=== PATIENT | male | born 1980 | race Two or more races ===

== ENCOUNTER 2018-02-10 08:29 | Inpatient (IN) | payer SELFPAY ==
[~2018-02-10] VITALS: Ht 165.1 cm; Wt 69.4 kg
[2018-02-10 09:22] LABS: BASOPHILS % 0.8 % (0.0-2.0); EOSINOPHILS % 0.9 % (0.0-5.0); HEMATOCRIT. 43.4 % (42.0-52.0); HEMOGLOBIN. 14.9 g/dL (14.0-18.0); LYMPHOCYTES % 20.1 % (20.0-50.0); MEAN CORPUSCULAR VOLUME 90.1 fL (80.0-94.0); MEAN PLATELET VOLUME 8.3 fl (7.4-10.4); MONOCYTES % 13.3 % (2.0-8.0); NEUTROPHILS % 64.9 % (40.0-76.0); PLATELET 237 x1000/uL (130-400); RED BLOOD CELL COUNT 4.81 mill/uL (4.7-6.1); RED CELL DISTRIBUTION WIDTH 13.8 % (11.6-14.6)
[2018-02-10 09:27] LABS: CHLORIDE 94 mEq/L (98-107)
[2018-02-10 09:31] LABS: ETHANOL BLOOD < 10 mg/dL
[2018-02-10 09:54] LABS: CLARITY URINE CLEAR (CLEAR); COLOR URINE YELLOW (YELLOW); KETONES URINE NEGATIVE (NEGATIVE); LEUKOCYTE ESTERASE URINE NEGATIVE (NEGATIVE); NITRITE URINE NEGATIVE (NEGATIVE); OCCULT BLOOD URINE TRACE (NEGATIVE); PH URINE 6.5 (4.5-8.0); PROTEIN URINE NEGATIVE (NEGATIVE); SPECIFIC GRAVITY URINE 1.002 (1.005-1.030); UROBILINOGEN URINE 0.2 E.U./dL (0.2-1.0)
[2018-02-10 10:06] LABS: METHADONE URINE SCREEN NEGATIVE (NEGATIVE); OPIATES URINE SCREEN NEGATIVE (NEGATIVE)
[2018-02-10 10:07] LABS: CANNABINOID URINE SCREEN NEGATIVE (NEGATIVE); PHENCYCLIDINE URINE SCREEN NEGATIVE (NEGATIVE)
[2018-02-10 10:09] LABS: *BARBITURATES SCREEN URINE NEGATIVE (NEGATIVE)
[2018-02-10 10:10] LABS: *AMPHETAMINES SCREEN URINE PRESUMTIVE POSITIVE (NEGATIVE)
[2018-02-10 10:11] LABS: *COCAINE SCREEN URINE NEGATIVE (NEGATIVE)
[2018-02-10 10:14] LABS: *BENZODIAZEPINES SCREEN URINE NEGATIVE (NEGATIVE)
[2018-02-10] MEDS ORDERED: SODIUM CHLORIDE 0.9% 1,000 ML IV ONE (13:44)
[2018-02-10] MEDS ORDERED: LORAZEPAM 2MG/ML CPJ IV PRN (14:15)
[2018-02-10] MEDS ORDERED: DOCUSATE SODIUM 100MG CAPSULE PO PRN (14:15)
[2018-02-10] MEDS ORDERED: ONDANSETRON HCL 4MG/2ML INJ IV PRN (14:15)
[2018-02-10] MEDS ORDERED: NA PHOS,M-B/NA PHOS,DI-BA ENEMA 118ML PR PRN (14:15)
[2018-02-10] MEDS ORDERED: GUAIFENESIN 200MG/10ML SUGAR FREE UDC PO PRN (14:15)
[2018-02-10] MEDS ORDERED: CLONIDINE 0.1MG TABLET PO PRN (14:15)
[2018-02-10] MEDS ORDERED: IPRATROPIUM/ALBUTEROL 0.5-3(2.5)MG/3ML NEB INH PRN (14:15)
[2018-02-10] MEDS ORDERED: HYDROMORPHONE HCL/PF 2MG/ML CPJ IV PRN (14:15)
[2018-02-10] MEDS ORDERED: HYDROCODONE/ACETAMINOPHEN 5/325MG TABLET PO PRN (14:15)
[2018-02-10] MEDS ORDERED: MAGNESIUM/ALUMINUM HYDROXIDE/SIMETHICONE 30ML UDC PO PRN (14:15)
[2018-02-10] MEDS ORDERED: ACETAMINOPHEN 325MG TABLET PO PRN (14:15)
[2018-02-10 17:00] VITALS: BP 129/78
[2018-02-10 17:45] VITALS: BP 129/78
[2018-02-10] MEDS: ENOXAPARIN 40MG/0.4ML SYR SUBCUT SCH (18:00)
[2018-02-10] MEDS: SODIUM CHLORIDE 0.9% 1,000 ML IV SCH (18:19)
[2018-02-10 19:05] LABS: CHLORIDE 107 mEq/L (98-107)
[2018-02-10 20:00] VITALS: BP 135/72
[2018-02-11] VITALS: BP 100/61
[2018-02-11 04:00] VITALS: BP 105/74
[2018-02-11] MEDS: SODIUM CHLORIDE 0.9% 1,000 ML IV SCH ×2 (04:26→13:21)
[2018-02-11 07:02] LABS: BASOPHILS % 0.8 % (0.0-2.0); EOSINOPHILS % 1.1 % (0.0-5.0); HEMOGLOBIN. 13.5 g/dL (14.0-18.0); LYMPHOCYTES % 19.6 % (20.0-50.0); MEAN CORPUSCULAR HEMOGLOBIN 31.3 pg (28.0-32.0); MEAN CORPUSCULAR VOLUME 92.3 fL (80.0-94.0); MEAN PLATELET VOLUME 8.6 fl (7.4-10.4); MONOCYTES % 13.5 % (2.0-8.0); PLATELET 179 x1000/uL (130-400); RED BLOOD CELL COUNT 4.33 mill/uL (4.7-6.1); RED CELL DISTRIBUTION WIDTH 14.3 % (11.6-14.6)
[2018-02-11 07:09] LABS: CHLORIDE 107 mEq/L (98-107)
[2018-02-11 07:26] LABS: LDL CHOLESTEROL 73 mg/dL (5-100)
[2018-02-11 07:29] LABS: HDL CHOLESTEROL 70 mg/dL (40-59); T4 FREE 0.92 ng/dL (0.76-1.46)
[2018-02-11 08:00] VITALS: BP 100/69
[2018-02-11] MEDS: ENOXAPARIN 40MG/0.4ML SYR SUBCUT SCH (09:19)
[2018-02-11] MEDS: ASPIRIN 81MG EC TABLET PO SCH (09:19)
[2018-02-11 11:41] VITALS: BP 100/57
[2018-02-11 16:00] VITALS: BP 103/70
[2018-02-11 20:00] VITALS: BP 98/55
[2018-02-12] VITALS: BP 95/55
[2018-02-12] MEDS: SODIUM CHLORIDE 0.9% 1,000 ML IV SCH ×4 (02:11→23:09)
[2018-02-12 04:00] VITALS: BP 92/63
[2018-02-12 07:04] LABS: HEMATOCRIT 39.3 % (42.0-52.0); HEMOGLOBIN 13.2 g/dL (14.0-18.0); MEAN CORPUSCULAR HEMOGLOBIN 30.9 pg (28.0-32.0); MEAN CORPUSCULAR VOLUME 91.9 fL (80.0-94.0); PLATELET 177 x1000/uL (130-400); RED BLOOD CELL COUNT 4.28 mill/uL (4.7-6.1); RED CELL DISTRIBUTION WIDTH 14.2 % (11.6-14.6)
[2018-02-12 07:51] VITALS: BP 102/56
[2018-02-12 08:07] LABS: CHLORIDE 106 mEq/L (98-107)
[2018-02-12] MEDS: ENOXAPARIN 40MG/0.4ML SYR SUBCUT SCH (09:33)
[2018-02-12] MEDS: ASPIRIN 81MG EC TABLET PO SCH (09:33)
[2018-02-12 12:00] VITALS: BP 100/58
[2018-02-12 16:00] VITALS: BP 108/66
[2018-02-12 20:00] VITALS: BP 104/66
[2018-02-13] VITALS: BP 108/60
[2018-02-13 04:00] VITALS: BP 104/56
[2018-02-13 08:00] VITALS: BP 93/53
[2018-02-13] MEDS: ENOXAPARIN 40MG/0.4ML SYR SUBCUT SCH (09:08)
[2018-02-13] MEDS: ASPIRIN 81MG EC TABLET PO SCH (09:08)
[2018-02-13] MEDS: SODIUM CHLORIDE 0.9% 1,000 ML IV SCH (09:56)
[2018-02-13 12:00] VITALS: BP 120/75
[2018-02-13 12:23] VITALS: BP 120/75
== END 2018-02-13 13:45 | disposition home or self-care (01) | DRG 52 ==
LOC: EDBD 08:29 → ER 08:29 → EDBD 13:55 → 8WST 13:55 → ENRESERV 14:43
PROVIDERS: ADMIT Internal Medicine; ATTEND Internal Medicine
DX: G93.41 Metabolic encephalopathy (principal); E87.1 Hypo-osmolality and hyponatremia; E86.0 Dehydration; E86.9 Volume depletion, unspecified; T38.895A Adverse effect of other hormones and synthetic substitutes, initial encounter; F15.10 Other stimulant abuse, uncomplicated; Z87.820 Personal history of traumatic brain injury; Z79.899 Other long term (current) drug therapy
CPT/HCPCS: 36415; 71045; 80048; 80061; 80305; 82962; 84439; 84443; 84484; 85027; 93005; 96360; 96372; 99285; G0482; J1650; J7030

== ENCOUNTER 2018-02-21 23:56 | Emergency (ER) | payer SELFPAY ==
[~2018-02-21] VITALS: Ht 162.6 cm; Wt 66.0 kg
[2018-02-22 00:16] VITALS: BP 141/94
== END 2018-02-22 03:11 | disposition left against medical advice (07) ==
LOC: ER 23:56
DX: Z53.21 Procedure and treatment not carried out due to patient leaving prior to being seen by health care provider (principal)
CPT/HCPCS: 93005

== ENCOUNTER 2018-08-05 18:11 | Emergency (ER) | payer MEDICAID ==
[~2018-08-05] VITALS: Ht 154.9 cm; Wt 57.0 kg
[2018-08-05 18:25] VITALS: BP 106/78
== END 2018-08-05 18:41 | disposition left against medical advice (07) ==
LOC: ER 18:11
DX: T51.91XA Toxic effect of unspecified alcohol, accidental (unintentional), initial encounter (principal); F10.129 Alcohol abuse with intoxication, unspecified; Y92.89 Other specified places as the place of occurrence of the external cause; R56.9 Unspecified convulsions
CPT/HCPCS: 99283

== ENCOUNTER 2018-08-05 19:44 | Emergency (ER) | payer MEDICAID ==
[~2018-08-05] VITALS: Ht 162.6 cm; Wt 77.1 kg
[2018-08-05 20:10] VITALS: BP 110/79
[2018-08-05 21:27] LABS: *AMPHETAMINES SCREEN URINE NEGATIVE (NEGATIVE); *BARBITURATES SCREEN URINE NEGATIVE (NEGATIVE); *BENZODIAZEPINES SCREEN URINE NEGATIVE (NEGATIVE); *COCAINE SCREEN URINE NEGATIVE (NEGATIVE); METHADONE URINE SCREEN NEGATIVE (NEGATIVE); OPIATES URINE SCREEN NEGATIVE (NEGATIVE)
[2018-08-05 21:28] LABS: CANNABINOID URINE SCREEN NEGATIVE (NEGATIVE); PHENCYCLIDINE URINE SCREEN NEGATIVE (NEGATIVE)
== END 2018-08-05 21:35 | disposition left against medical advice (07) ==
LOC: ER 19:44
DX: F10.129 Alcohol abuse with intoxication, unspecified (principal); R56.9 Unspecified convulsions; Y90.9 Presence of alcohol in blood, level not specified
CPT/HCPCS: 80305; 99283

== ENCOUNTER 2018-08-18 12:15 | Emergency (ER) | payer MEDICAID ==
[~2018-08-18] VITALS: Ht 167.6 cm; Wt 80.0 kg
[2018-08-18 13:04] VITALS: BP 91/65
== END 2018-08-18 14:50 | disposition left against medical advice (07) ==
LOC: ER 12:15
DX: F10.129 Alcohol abuse with intoxication, unspecified (principal); Y90.9 Presence of alcohol in blood, level not specified
CPT/HCPCS: 99283

== ENCOUNTER 2019-03-22 18:57 | Emergency (ER) | payer MEDICAID ==
[~2019-03-22] VITALS: Ht 162.6 cm; Wt 62.0 kg
[2019-03-22 19:01] VITALS: BP 119/78
== END 2019-03-22 19:14 | disposition left against medical advice (07) ==
LOC: ER 18:57
DX: F10.10 Alcohol abuse, uncomplicated (principal); Z53.21 Procedure and treatment not carried out due to patient leaving prior to being seen by health care provider; Y90.9 Presence of alcohol in blood, level not specified

== ENCOUNTER 2019-04-24 14:24 | Emergency (ER) | payer MEDICAID ==
[~2019-04-24] VITALS: Ht 165.1 cm; Wt 64.0 kg
[2019-04-24 14:26] VITALS: BP 128/92
== END 2019-04-24 14:59 | disposition left against medical advice (07) ==
LOC: ER 14:24
DX: F10.129 Alcohol abuse with intoxication, unspecified (principal); Y90.0 Blood alcohol level of less than 20 mg/100 ml; Z53.21 Procedure and treatment not carried out due to patient leaving prior to being seen by health care provider

== ENCOUNTER 2019-04-26 09:44 | Inpatient (IN) | payer MEDICAID, OTHER ==
[~2019-04-26] VITALS: Ht 172.7 cm; Wt 67.1 kg
[2019-04-26] MEDS ORDERED: SODIUM CHLORIDE 0.9% 1000ML BAG (SEPSIS BOLUS) IV ONE (11:00)
[2019-04-26] MEDS ORDERED: FOLIC ACID 1 MG, THIAMINE HCL 100 MG, MVI, ADULT NO.1 10 ML in DEXTROSE 5% WATER 1,000 ML IV ONE ×4 (11:00)
[2019-04-26] MEDS ORDERED: LORAZEPAM 2MG/ML CPJ IV ONE (11:00)
[2019-04-26 11:12] LABS: BASOPHILS % 0.4 % (0.0-2.0); EOSINOPHILS % 0.3 % (0.0-5.0); HEMATOCRIT. 36.7 % (42.0-52.0); HEMOGLOBIN. 12.4 g/dL (14.0-18.0); LYMPHOCYTES % 13.8 % (20.0-50.0); MEAN CORPUSCULAR HEMOGLOBIN 30.3 pg (28.0-32.0); MEAN CORPUSCULAR VOLUME 89.4 fL (80.0-94.0); MEAN PLATELET VOLUME 8.4 fl (7.4-10.4); MONOCYTES % 9.8 % (2.0-8.0); NEUTROPHILS % 75.7 % (40.0-76.0); PLATELET 193 x1000/uL (130-400); RED CELL DISTRIBUTION WIDTH 14.3 % (11.6-14.6)
[2019-04-26 11:17] LABS: CHLORIDE 101 mEq/L (98-107)
[2019-04-26 11:21] LABS: ETHANOL BLOOD < 10 mg/dL; PARTIAL THROMBOPLASTIN TIME 26.4 sec (23.4-31.0); PROTHROMBIN TIME 10.1 sec (9.6-11.0)
[2019-04-26 14:34] LABS: CLARITY URINE CLEAR (CLEAR); COLOR URINE YELLOW (YELLOW); KETONES URINE NEGATIVE (NEGATIVE); LEUKOCYTE ESTERASE URINE NEGATIVE (NEGATIVE); NITRITE URINE NEGATIVE (NEGATIVE); OCCULT BLOOD URINE NEGATIVE (NEGATIVE); PROTEIN URINE NEGATIVE (NEGATIVE); SPECIFIC GRAVITY URINE 1.003 (1.005-1.030); UROBILINOGEN URINE 0.2 E.U./dL (0.2-1.0)
[2019-04-26 14:59] LABS: *AMPHETAMINES SCREEN URINE NEGATIVE (NEGATIVE); *BARBITURATES SCREEN URINE NEGATIVE (NEGATIVE); *BENZODIAZEPINES SCREEN URINE NEGATIVE (NEGATIVE); *COCAINE SCREEN URINE NEGATIVE (NEGATIVE); METHADONE URINE SCREEN NEGATIVE (NEGATIVE)
[2019-04-26 15:01] LABS: CANNABINOID URINE SCREEN NEGATIVE (NEGATIVE); OPIATES URINE SCREEN NEGATIVE (NEGATIVE); PHENCYCLIDINE URINE SCREEN NEGATIVE (NEGATIVE)
[2019-04-26 18:00] VITALS: BP 121/81
[2019-04-26 20:00] VITALS: BP 118/71
[2019-04-26] MEDS ORDERED: MAGNESIUM/ALUMINUM HYDROXIDE/SIMETHICONE 30ML UDC PO PRN (20:30)
[2019-04-26] MEDS ORDERED: DIPHENHYDRAMINE 50MG/ML VIAL IV PRN (20:30)
[2019-04-26] MEDS ORDERED: CLONIDINE 0.1MG TABLET PO PRN (20:30)
[2019-04-26] MEDS ORDERED: ONDANSETRON HCL 4MG/2ML INJ IV PRN (20:30)
[2019-04-26] MEDS ORDERED: ACETAMINOPHEN 325MG TABLET PO PRN (20:30)
[2019-04-26] MEDS ORDERED: LEVETIRACETAM 500 MG in SODIUM CHLORIDE 0.9% 100 ML IV SCH (20:30)
[2019-04-26] MEDS ORDERED: LORAZEPAM 2MG/ML CPJ IV PRN (20:30)
[2019-04-26] MEDS: FAMOTIDINE 20MG/2ML VIAL IV SCH (21:16)
[2019-04-26] MEDS: SODIUM CHLORIDE 0.9% 1,000 ML IV SCH (21:20)
[2019-04-26] MEDS: LEVETIRACETAM 500MG PREMIX 100 ML IV SCH (22:22)
[2019-04-27] VITALS: BP 102/62
[2019-04-27 04:00] VITALS: BP 117/78
[2019-04-27 06:22] LABS: BASOPHILS % 0.8 % (0.0-2.0); EOSINOPHILS % 1.3 % (0.0-5.0); HEMOGLOBIN. 12.1 g/dL (14.0-18.0); LYMPHOCYTES % 20.7 % (20.0-50.0); MEAN CORPUSCULAR HEMOGLOBIN 30.2 pg (28.0-32.0); MEAN CORPUSCULAR VOLUME 89.5 fL (80.0-94.0); MEAN PLATELET VOLUME 8.4 fl (7.4-10.4); MONOCYTES % 9.9 % (2.0-8.0); NEUTROPHILS % 67.3 % (40.0-76.0); PLATELET 178 x1000/uL (130-400); RED BLOOD CELL COUNT 4.03 mill/uL (4.7-6.1)
[2019-04-27 06:50] LABS: CHLORIDE 109 mEq/L (98-107)
[2019-04-27 07:09] LABS: PHOSPHORUS 3.3 mg/dL (2.5-4.9)
[2019-04-27 08:00] VITALS: BP 111/83
[2019-04-27] MEDS: FAMOTIDINE 20MG/2ML VIAL IV SCH (08:14)
[2019-04-27] MEDS: LEVETIRACETAM 500MG PREMIX 100 ML IV SCH (08:14)
[2019-04-27] MEDS: SODIUM CHLORIDE 0.9% 1,000 ML IV SCH (08:15)
[2019-04-27] MEDS ORDERED: MVI, ADULT NO.1 10 ML, FOLIC ACID 1 MG, THIAMINE HCL 100 MG in SODIUM CHLORIDE 0.9% 1,0... IV NR ×4 (11:00)
[2019-04-27 12:00] VITALS: BP 112/82
[2019-04-27 14:49] VITALS: BP 100/56
[2019-04-27] MEDS ORDERED: KEPP500 MT (14:53)
== END 2019-04-27 15:40 | disposition home or self-care (01) | DRG 52 ==
LOC: ER 09:44 → 5WST 12:38 → ENRESERV 14:05
PROVIDERS: ADMIT Internal Medicine; ATTEND Internal Medicine
DX: G93.41 Metabolic encephalopathy (principal); E87.1 Hypo-osmolality and hyponatremia; G40.909 Epilepsy, unspecified, not intractable, without status epilepticus; F10.239 Alcohol dependence with withdrawal, unspecified; Z59.0 Homelessness; Z71.41 Alcohol abuse counseling and surveillance of alcoholic
CPT/HCPCS: 36415; 71045; 80048; 80053; 80305; 80320; 81003; 83735; 83880; 84100; 84484; 85025; 93005; 99285; J1200; J1953; J2060; J3411; J3490; J7030; J7070; G0480

== ENCOUNTER 2019-06-27 14:46 | Inpatient (IN) | payer MEDICAID, OTHER ==
[~2019-06-27] VITALS: Ht 157.5 cm; Wt 67.1 kg
[~2019-06-27 14:46] MED LIST: KEPP500 MT
[2019-06-27] MEDS ORDERED: LORAZEPAM 2MG/ML CPJ ONE ×2 (14:59→15:04)
[2019-06-27] MEDS ORDERED: SODIUM CHLORIDE 0.9% 1,000 ML IV ONE (15:45)
[2019-06-27 16:06] LABS: HEMATOCRIT. 39.3 % (42.0-52.0); HEMOGLOBIN. 13.6 g/dL (14.0-18.0); MEAN CORPUSCULAR HEMOGLOBIN 30.4 pg (28.0-32.0); MEAN CORPUSCULAR VOLUME 87.7 fL (80.0-94.0); MEAN PLATELET VOLUME 8.8 fl (7.4-10.4); PLATELET 226 x1000/uL (130-400); RED BLOOD CELL COUNT 4.48 mill/uL (4.7-6.1); RED CELL DISTRIBUTION WIDTH 13.4 % (11.6-14.6)
[2019-06-27 16:16] LABS: CHLORIDE 83 mEq/L (98-107)
[2019-06-27 16:23] LABS: ETHANOL BLOOD < 10 mg/dL
[2019-06-27 16:34] LABS: PLATELET ESTIMATE NORMAL
[2019-06-27 16:38] LABS: CREATINE KINASE 1700 IU/L (39-308)
[2019-06-27] MEDS ORDERED: SODIUM CHLORIDE 3% 500ML IV SOLN IV ONE (16:45)
[2019-06-27] MEDS ORDERED: SODIUM CHLORIDE 3% 500ML IV SOLN IV NR (17:00)
[2019-06-27] MEDS ORDERED: ONDANSETRON HCL 4MG/2ML INJ IV PRN (18:00)
[2019-06-27] MEDS ORDERED: LORAZEPAM 2MG/ML CPJ IV PRN (18:00)
[2019-06-27 19:02] LABS: CLARITY URINE CLEAR (CLEAR); COLOR URINE YELLOW (YELLOW); KETONES URINE 1+ (NEGATIVE); LEUKOCYTE ESTERASE URINE NEGATIVE (NEGATIVE); NITRITE URINE NEGATIVE (NEGATIVE); OCCULT BLOOD URINE NEGATIVE (NEGATIVE); PROTEIN URINE NEGATIVE (NEGATIVE); SPECIFIC GRAVITY URINE 1.005 (1.005-1.030); UROBILINOGEN URINE 0.2 E.U./dL (0.2-1.0)
[2019-06-27] MEDS ORDERED: LORAZEPAM 2MG/ML CPJ IV ONE ×2 (19:15)
[2019-06-27 19:39] LABS: *AMPHETAMINES SCREEN URINE NEGATIVE (NEGATIVE); *BARBITURATES SCREEN URINE NEGATIVE (NEGATIVE); *BENZODIAZEPINES SCREEN URINE NEGATIVE (NEGATIVE); *COCAINE SCREEN URINE NEGATIVE (NEGATIVE); METHADONE URINE SCREEN NEGATIVE (NEGATIVE); OPIATES URINE SCREEN NEGATIVE (NEGATIVE)
[2019-06-27 19:40] LABS: CANNABINOID URINE SCREEN PRESUMTIVE POSITIVE (NEGATIVE); PHENCYCLIDINE URINE SCREEN NEGATIVE (NEGATIVE)
[2019-06-27] MEDS ORDERED: ACETAMINOPHEN 650MG SUPP PR NR (21:15)
[2019-06-27] MEDS ORDERED: LEVETIRACETAM 500MG PREMIX 100 ML IV NR (21:15)
[2019-06-27 23:06] LABS: CHLORIDE 96 mEq/L (98-107)
[2019-06-28] MEDS: DEXTROSE 5% WATER 1,000 ML IV SCH ×2 (02:27→15:17)
[2019-06-28] MEDS: HEPARIN 5000 UNITS/ML VIAL SUBCUT SCH ×3 (04:48→20:42)
[2019-06-28 05:25] LABS: BASOPHILS % 0.7 % (0.0-2.0); HEMATOCRIT. 38.9 % (42.0-52.0); HEMOGLOBIN. 13.7 g/dL (14.0-18.0); LYMPHOCYTES % 13.8 % (20.0-50.0); MEAN CORPUSCULAR HEMOGLOBIN 30.6 pg (28.0-32.0); MEAN CORPUSCULAR VOLUME 86.8 fL (80.0-94.0); MEAN PLATELET VOLUME 8.2 fl (7.4-10.4); MONOCYTES % 13.2 % (2.0-8.0); NEUTROPHILS % 72.3 % (40.0-76.0); PLATELET 231 x1000/uL (130-400); RED BLOOD CELL COUNT 4.49 mill/uL (4.7-6.1); RED CELL DISTRIBUTION WIDTH 13.8 % (11.6-14.6)
[2019-06-28 05:33] LABS: CHLORIDE 103 mEq/L (98-107)
[2019-06-28] MEDS ORDERED: KCL 20MEQ/100ML PREMIX 100 ML IV NR (08:00)
[2019-06-28] MEDS ORDERED: LORAZEPAM 2MG/ML CPJ IV ONE (09:45)
[2019-06-28] MEDS ORDERED: LEVETIRACETAM 500MG TABLET PO SCH (11:30)
[2019-06-28] MEDS ORDERED: PHENYTOIN SODIUM 1,000 MG in SODIUM CHLORIDE 0.9% 100 ML IV NR (16:00)
[2019-06-28 18:00] VITALS: BP 105/59
[2019-06-28] MEDS: MULTIVITAMINS,THER W-MINERALS TABLET PO SCH (18:43)
[2019-06-28] MEDS: THIAMINE HCL 100MG TABLET PO SCH (18:43)
[2019-06-28] MEDS: FOLIC ACID 1MG TABLET PO SCH (18:44)
[2019-06-28 20:00] VITALS: BP 118/62
[2019-06-28] MEDS: PHENYTOIN SODIUM EXTENDED 100MG CAPSULE PO SCH (21:35)
[2019-06-28] MEDS: LORAZEPAM 2MG/ML CPJ IV PRN (23:30)
[2019-06-29] VITALS: BP 103/70
[2019-06-29] MEDS: DEXTROSE 5% WATER 1,000 ML IV SCH (03:07)
[2019-06-29 04:00] VITALS: BP 102/66
[2019-06-29] MEDS: PHENYTOIN SODIUM EXTENDED 100MG CAPSULE PO SCH ×3 (05:22→21:09)
[2019-06-29 08:00] VITALS: BP 110/74
[2019-06-29] MEDS: FOLIC ACID 1MG TABLET PO SCH (09:55)
[2019-06-29] MEDS: MULTIVITAMINS,THER W-MINERALS TABLET PO SCH (09:55)
[2019-06-29] MEDS: THIAMINE HCL 100MG TABLET PO SCH (09:55)
[2019-06-29] MEDS: HEPARIN 5000 UNITS/ML VIAL SUBCUT SCH ×2 (09:55→21:09)
[2019-06-29 12:00] VITALS: BP 117/76
[2019-06-29 13:42] LABS: CHLORIDE 102 mEq/L (98-107)
[2019-06-29 16:00] VITALS: BP 128/79
[2019-06-30 00:49] VITALS: BP 115/68
[2019-06-30 04:00] VITALS: BP 112/71
[2019-06-30] MEDS: PHENYTOIN SODIUM EXTENDED 100MG CAPSULE PO SCH ×3 (05:51→21:21)
[2019-06-30 08:00] VITALS: BP 111/77
[2019-06-30] MEDS: MULTIVITAMINS,THER W-MINERALS TABLET PO SCH (09:34)
[2019-06-30] MEDS: FOLIC ACID 1MG TABLET PO SCH (09:34)
[2019-06-30] MEDS: THIAMINE HCL 100MG TABLET PO SCH (09:34)
[2019-06-30] MEDS: HEPARIN 5000 UNITS/ML VIAL SUBCUT SCH ×2 (09:36→21:17)
[2019-06-30 12:00] VITALS: BP 132/81
[2019-06-30 12:34] LABS: CHLORIDE 80 mEq/L (98-107)
[2019-06-30] MEDS: LORAZEPAM 2MG/ML CPJ IV PRN (15:23)
[2019-06-30] MEDS ORDERED: HALOPERIDOL LACTATE 5MG/ML VIAL IM PRN (16:45)
[2019-06-30] MEDS ORDERED: RISPERIDONE 0.5MG TABLET PO SCH (17:00)
[2019-06-30 18:12] LABS: BASOPHILS % 0.9 % (0.0-2.0); EOSINOPHILS % 0.6 % (0.0-5.0); HEMATOCRIT. 39.3 % (42.0-52.0); HEMOGLOBIN. 13.8 g/dL (14.0-18.0); LYMPHOCYTES % 16.2 % (20.0-50.0); MEAN CORPUSCULAR HEMOGLOBIN 30.9 pg (28.0-32.0); MEAN CORPUSCULAR VOLUME 88.4 fL (80.0-94.0); MEAN PLATELET VOLUME 8.8 fl (7.4-10.4); MONOCYTES % 11.7 % (2.0-8.0); NEUTROPHILS % 70.6 % (40.0-76.0); PLATELET 211 x1000/uL (130-400); RED BLOOD CELL COUNT 4.45 mill/uL (4.7-6.1); RED CELL DISTRIBUTION WIDTH 14.5 % (11.6-14.6)
[2019-06-30 20:00] VITALS: BP 119/79
[2019-06-30] MEDS: ACETAMINOPHEN 325MG TABLET PO PRN (21:16)
[2019-06-30] MEDS: RISPERIDONE 1MG TABLET PO SCH (21:22)
[2019-06-30] MEDS ORDERED: CHLORDIAZEPOXIDE 5 MG CAPSULE PO SCH (22:00)
[2019-06-30] MEDS ORDERED: CHLORDIAZEPOXIDE 25MG CAPSULE PO SCH (22:00)
[2019-06-30] MEDS: CHLORDIAZEPOXIDE 25MG CAPSULE PO SCH (22:02)
[2019-07-01] VITALS: BP 106/76
[2019-07-01 04:00] VITALS: BP 125/83
[2019-07-01] MEDS: CHLORDIAZEPOXIDE 25MG CAPSULE PO SCH ×2 (06:14→20:35)
[2019-07-01] MEDS: PHENYTOIN SODIUM EXTENDED 100MG CAPSULE PO SCH ×3 (06:14→22:13)
[2019-07-01 08:17] LABS: EOSINOPHILS % 2.1 % (0.0-5.0); HEMATOCRIT. 39.6 % (42.0-52.0); HEMOGLOBIN. 13.6 g/dL (14.0-18.0); LYMPHOCYTES % 14.2 % (20.0-50.0); MEAN CORPUSCULAR HEMOGLOBIN 30.5 pg (28.0-32.0); MEAN CORPUSCULAR VOLUME 88.6 fL (80.0-94.0); MEAN PLATELET VOLUME 8.7 fl (7.4-10.4); MONOCYTES % 13.9 % (2.0-8.0); NEUTROPHILS % 68.8 % (40.0-76.0); PLATELET 175 x1000/uL (130-400); RED BLOOD CELL COUNT 4.47 mill/uL (4.7-6.1); RED CELL DISTRIBUTION WIDTH 13.9 % (11.6-14.6)
[2019-07-01 08:19] LABS: CHLORIDE 100 mEq/L (98-107)
[2019-07-01] MEDS: MULTIVITAMINS,THER W-MINERALS TABLET PO SCH (08:47)
[2019-07-01] MEDS: HEPARIN 5000 UNITS/ML VIAL SUBCUT SCH ×2 (08:47→21:00)
[2019-07-01] MEDS: FOLIC ACID 1MG TABLET PO SCH (08:47)
[2019-07-01] MEDS: THIAMINE HCL 100MG TABLET PO SCH (08:47)
[2019-07-01] MEDS: RISPERIDONE 1MG TABLET PO SCH ×2 (08:49→20:47)
[2019-07-01] MEDS ORDERED: RISPERIDONE 0.5MG TABLET PO SCH (09:00)
[2019-07-01] MEDS ORDERED: POTASSIUM CHLORIDE 10MEQ TABLET SR PO ONE (11:00)
[2019-07-01] MEDS ORDERED: POTASSIUM CHLORIDE 20MEQ/PACKET PO NR ×2 (12:00→12:35)
[2019-07-01 12:01] VITALS: BP 117/65
[2019-07-01] MEDS ORDERED: VANCOMYCIN 1250MG in DEXTROSE 5% WATER 250ML IV SCH (14:00)
[2019-07-01] MEDS ORDERED: PIPERACILLIN/TAZOBACTAM 3.375 G/VIAL IV SCH (14:00)
[2019-07-01] MEDS: PIPERACILLIN/TAZOBACTAM 3.375 G in DEXT 5% WATER 100 ML IV SCH ×3 (14:00→22:09)
[2019-07-01 16:00] VITALS: BP 113/76
[2019-07-01 16:55] LABS: PHOSPHORUS 3.3 mg/dL (2.5-4.9)
[2019-07-01] MEDS: ACETAMINOPHEN 325MG TABLET PO PRN (17:14)
[2019-07-01 20:00] VITALS: BP 116/73
[2019-07-01] MEDS: VANCOMYCIN 1 G PREMIX 200 ML IV SCH (23:51)
[2019-07-02] VITALS: BP 112/67
[2019-07-02 04:00] VITALS: BP 95/54
[2019-07-02] MEDS: PIPERACILLIN/TAZOBACTAM 3.375 G in DEXT 5% WATER 100 ML IV SCH (04:06)
[2019-07-02] MEDS: PHENYTOIN SODIUM EXTENDED 100MG CAPSULE PO SCH (06:04)
[2019-07-02] MEDS: VANCOMYCIN 1 G PREMIX 200 ML IV SCH (06:06)
[2019-07-02 06:08] LABS: HEMOGLOBIN. 12.6 g/dL (14.0-18.0); MEAN CORPUSCULAR VOLUME 88.4 fL (80.0-94.0); MEAN PLATELET VOLUME 9.1 fl (7.4-10.4); PLATELET 170 x1000/uL (130-400); RED BLOOD CELL COUNT 4.19 mill/uL (4.7-6.1); RED CELL DISTRIBUTION WIDTH 14.1 % (11.6-14.6)
[2019-07-02 06:19] LABS: CHLORIDE 101 mEq/L (98-107)
[2019-07-02] MEDS ORDERED: POTASSIUM CHLORIDE 20MEQ/PACKET PO SCH (07:45)
[2019-07-02] MEDS: HEPARIN 5000 UNITS/ML VIAL SUBCUT SCH (09:00)
[2019-07-02] MEDS: THIAMINE HCL 100MG TABLET PO SCH (09:37)
[2019-07-02] MEDS: FOLIC ACID 1MG TABLET PO SCH (09:37)
[2019-07-02] MEDS: CHLORDIAZEPOXIDE 25MG CAPSULE PO SCH (09:37)
[2019-07-02] MEDS: RISPERIDONE 1MG TABLET PO SCH (09:37)
[2019-07-02] MEDS: MULTIVITAMINS,THER W-MINERALS TABLET PO SCH (09:38)
[2019-07-02 19:55] LABS: PLATELET ESTIMATE NORMAL
== END 2019-07-02 11:50 | disposition left against medical advice (07) | DRG 720 ==
LOC: ER 14:46 → EDBEDREQ 16:51 → EDBEDREQSVC 06-28 08:24 → ENRESERV 06-28 13:49 → CANRESERV 06-28 13:49 → ENRESERV 06-28 15:30 → 7WST 06-28 17:35
PROVIDERS: ADMIT Internal Medicine; ATTEND Internal Medicine
DX: A41.9 Sepsis, unspecified organism (principal); G93.41 Metabolic encephalopathy; E87.1 Hypo-osmolality and hyponatremia; G93.89 Other specified disorders of brain; F10.239 Alcohol dependence with withdrawal, unspecified; Z78.1 Physical restraint status; G40.909 Epilepsy, unspecified, not intractable, without status epilepticus; E87.6 Hypokalemia; Z53.29 Procedure and treatment not carried out because of patient's decision for other reasons; R33.9 Retention of urine, unspecified; Z86.73 Personal history of transient ischemic attack (TIA), and cerebral infarction without residual deficits; Z91.14 Patient's other noncompliance with medication regimen; Z79.899 Other long term (current) drug therapy; N39.0 Urinary tract infection, site not specified
CPT/HCPCS: 36415; 71045; 80048; 80053; 80061; 80185; 80305; 80320; 81003; 82533; 82542; 82550; 83735; 83930; 84100; 84295; 84443; 84484; 85025; 93005; 97162; 99291; J1165; J1630; J1644; J1953; J2060; J2543; J3370; J3480; J7030; J7050; J7060; J7070; G0480

== ENCOUNTER 2019-07-12 16:38 | Emergency (ER) | payer MEDICAID, OTHER ==
[~2019-07-12] VITALS: Ht 167.6 cm; Wt 70.0 kg
[2019-07-13 02:00] LABS: CHLORIDE 113 mEq/L (98-107)
[2019-07-13 02:04] LABS: ETHANOL BLOOD 151 mg/dL
[2019-07-13 02:12] LABS: BASOPHILS % 1.4 % (0.0-2.0); EOSINOPHILS % 2.3 % (0.0-5.0); HEMATOCRIT. 36.5 % (42.0-52.0); HEMOGLOBIN. 12.2 g/dL (14.0-18.0); LYMPHOCYTES % 31.3 % (20.0-50.0); MEAN CORPUSCULAR HEMOGLOBIN 29.7 pg (28.0-32.0); MEAN CORPUSCULAR VOLUME 89.4 fL (80.0-94.0); MEAN PLATELET VOLUME 7.5 fl (7.4-10.4); MONOCYTES % 8.4 % (2.0-8.0); NEUTROPHILS % 56.6 % (40.0-76.0); PLATELET 441 x1000/uL (130-400); RED BLOOD CELL COUNT 4.09 mill/uL (4.7-6.1); RED CELL DISTRIBUTION WIDTH 14.4 % (11.6-14.6)
[2019-07-13 06:21] VITALS: BP 125/69
== END 2019-07-13 06:23 | disposition home or self-care (01) ==
LOC: ER 16:38
DX: F10.129 Alcohol abuse with intoxication, unspecified (principal); R51 Headache; Y90.6 Blood alcohol level of 120-199 mg/100 ml; Z86.73 Personal history of transient ischemic attack (TIA), and cerebral infarction without residual deficits; Z98.890 Other specified postprocedural states
CPT/HCPCS: 36415; 80053; 80307; 80320; 80329; 85025; 99284; G0480

== ENCOUNTER 2019-07-18 15:40 | Emergency (ER) | payer SELFPAY ==
[~2019-07-18] VITALS: Ht 162.6 cm; Wt 55.0 kg
[2019-07-18 16:16] VITALS: BP 128/80
== END 2019-07-18 19:12 | disposition left against medical advice (07) ==
LOC: ER 15:40
DX: Z53.21 Procedure and treatment not carried out due to patient leaving prior to being seen by health care provider (principal)

== ENCOUNTER 2019-08-31 18:28 | Emergency (ER) | payer MEDICAID ==
[~2019-08-31] VITALS: Ht 165.1 cm; Wt 54.0 kg
[2019-08-31 18:34] VITALS: BP 116/79
== END 2019-08-31 21:32 | disposition left against medical advice (07) ==
LOC: ER 18:28
DX: F10.129 Alcohol abuse with intoxication, unspecified (principal); Y90.9 Presence of alcohol in blood, level not specified
CPT/HCPCS: 99283

== ENCOUNTER 2019-09-05 15:50 | Emergency (ER) | payer MEDICAID ==
[~2019-09-05] VITALS: Ht 165.1 cm; Wt 62.0 kg
[2019-09-05 15:52] VITALS: BP 104/57
[2019-09-05] MEDS ORDERED: SODIUM CHLORIDE 0.9% 1,000 ML IV ONE (16:35)
[2019-09-05] MEDS ORDERED: LEVETIRACETAM 1000MG/100ML 100 ML IV ONE (16:45)
== END 2019-09-05 16:50 | disposition left against medical advice (07) ==
LOC: ER 15:50
DX: G40.909 Epilepsy, unspecified, not intractable, without status epilepticus (principal); Z53.29 Procedure and treatment not carried out because of patient's decision for other reasons; F10.21 Alcohol dependence, in remission; Z86.73 Personal history of transient ischemic attack (TIA), and cerebral infarction without residual deficits
CPT/HCPCS: 99283; J7030

== ENCOUNTER 2019-09-22 18:57 | Emergency (ER) | payer MEDICAID ==
[~2019-09-22] VITALS: Ht 162.6 cm; Wt 68.0 kg
[2019-09-22] MEDS ORDERED: CHLORDIAZEPOXIDE 25MG CAPSULE PO ONE (19:30)
[2019-09-22 20:36] LABS: CHLORIDE 108 mEq/L (98-107)
[2019-09-23 06:19] VITALS: BP 97/63
== END 2019-09-23 06:56 | disposition home or self-care (01) ==
LOC: ER 18:57
DX: F10.229 Alcohol dependence with intoxication, unspecified (principal); Y90.0 Blood alcohol level of less than 20 mg/100 ml
CPT/HCPCS: 36415; 80048; 99285

== ENCOUNTER 2019-10-14 08:26 | Emergency (ER) | payer MEDICAID ==
[~2019-10-14] VITALS: Ht 165.1 cm; Wt 72.0 kg
[2019-10-14] MEDS ORDERED: SODIUM CHLORIDE 0.9% 1,000 ML IV ONE (09:32)
[2019-10-14] MEDS ORDERED: LORAZEPAM 2MG/ML CPJ IV ONE (09:45)
[2019-10-14] MEDS ORDERED: LORAZEPAM 2MG/ML CPJ ONE (09:47)
[2019-10-14 10:25] VITALS: BP 133/112
[2019-10-14 10:48] LABS: BASOPHILS % 0.4 % (0.0-2.0); EOSINOPHILS % 0.9 % (0.0-5.0); HEMATOCRIT. 39.4 % (42.0-52.0); MEAN CORPUSCULAR HEMOGLOBIN 29.1 pg (28.0-32.0); MEAN CORPUSCULAR VOLUME 88.1 fL (80.0-94.0); NEUTROPHILS % 81.7 % (40.0-76.0); RED BLOOD CELL COUNT 4.47 mill/uL (4.7-6.1); RED CELL DISTRIBUTION WIDTH 16.2 % (11.6-14.6)
[2019-10-14 10:53] LABS: CHLORIDE 105 mEq/L (98-107)
[2019-10-14 10:57] LABS: ETHANOL BLOOD < 10 mg/dL
[2019-10-14 11:15] LABS: PROTHROMBIN TIME 10.7 sec (9.6-11.0)
[2019-10-14 11:24] LABS: MEAN PLATELET VOLUME 8.5 fl (7.4-10.4); PLATELET 169 x1000/uL (130-400)
[2019-10-14] MEDS ORDERED: LEVETIRACETAM 1000MG/100ML 100 ML IV ONE (12:30)
== END 2019-10-14 13:39 | disposition home or self-care (01) ==
LOC: ER 08:26
DX: R56.9 Unspecified convulsions (principal); F10.20 Alcohol dependence, uncomplicated; Y90.0 Blood alcohol level of less than 20 mg/100 ml
CPT/HCPCS: 36415; 70450; 80053; 80320; 85025; 85610; 96365; 96375; 99285; J1953; J2060; J7030; G0480

== ENCOUNTER 2019-12-14 16:52 | Emergency (ER) | payer MEDICAID ==
[~2019-12-14] VITALS: Ht 154.9 cm; Wt 73.0 kg
[2019-12-14 16:56] VITALS: BP 112/62
== END 2019-12-14 21:40 | disposition home or self-care (01) ==
LOC: ER 16:52
DX: F10.229 Alcohol dependence with intoxication, unspecified (principal); G40.909 Epilepsy, unspecified, not intractable, without status epilepticus; Y90.9 Presence of alcohol in blood, level not specified
CPT/HCPCS: 99283